=== PATIENT | male | born 1995 | race Caucasian/White ===

== ENCOUNTER 2017-05-22 00:15 | Emergency (ER) | payer OTHER ==
[2017-05-22 00:25] VITALS: BP 139/85
--- NOTE | 2017-05-22 00:35 | ER Document Report ---
HPI - HPI Pain Level: 5 Context: Patient is a 22-year-old male presents emergency department complaining of right ear pain. Patient states that he has had some sinus congestion over the past couple of days earlier today he blew his nose really hard trying to pop his ears when he had sudden onset of loss of hearing in the right ear then has developed a sharp stabbing pain in that ear over the course of today. Patient states that he is trying to go to bed this evening and the pain is just unbearable. He denies any fevers, chills, bleeding or drainage from that ear. - DERM Skin Color: Normal, [place] Past Medical History - Social History Smoking Status: Never Smoker Family History: Reviewed & Not Pertinent Patient has suicidal ideation: No Patient has homicidal ideation: No Renal/ Medical History: Denies: Hx Peritoneal Dialysis - Immunizations Hx Diphtheria, Pertussis, Tetanus Vaccination: Yes Vertical Provider Document - CONSTITUTIONAL Agree With Documented VS: Yes Notes: PHYSICAL EXAM GENERAL: Alert, interacts well. HEENT: NCAT, pale conjunctiva, extraocular movements intact, pupils PERRL. external ear evidence of bright red blood, no evidence of external auditory canal tenderness, blood/drainage, cerumen impaction, TM with evidence of pinpoint perforation at 1:00 with minimal bleeding without evidence of effusion , bulging, injection, MMM NECK: Full range of motion. Supple. Trachea midline. LUNGS: Clear to auscultation bilaterally, no wheezes, rales, or rhonchi. No respiratory distress. HEART: Regular rate and rhythm. No murmurs, gallops, or rubs. NEUROLOGICAL: Alert and oriented x4. Normal speech. PSYCH: Normal affect, normal mood. SKIN: Warm, dry, normal turgor. No rashes or lesions noted. - INFECTION CONTROL TRAVEL OUTSIDE OF THE [place] IN LAST 30 DAYS: No - RESPIRATORY O2 Sat by Pulse Oximetry: 99 Course - Re-evaluation Re-evalutation: 05/22/17 01:00 patient is a 22-year-old male is hemodynamically stable, no acute distress afebrile. Presentation is consistent with barotrauma TM perforation. Discharge home on antibiotics and minimal pain medication [place] reevaluation and if necessary ENT referral - Vital Signs Vital signs: Temp Pulse Resp BP Pulse Ox 97.6 F 66 16 139/85 H 99 11/13/17 00:21 05/22/17 00:21 05/22/17 00:21 05/22/17 00:21 05/22/17 00:21 Discharge - Discharge Clinical Impression: Perforated tympanic membrane Qualifiers: Laterality: right Qualified Code(s): H72.91 - Unspecified perforation of tympanic membrane, right ear Condition: Good Disposition: HOME, SELF-CARE Instructions: Use of Ear Drops ([facility]), Perforated Eardrum ([facility]) Additional Instructions: Please follow [place] Prescriptions: Ofloxacin 5 ml OT ONCE 14 Days drops
[2017-05-22] MEDS ORDERED: HYDROCODONE/ACETAMINOPHEN 5-325 MG 6 TAB/DSPK PO PRN (00:45)
[2017-05-22] MEDS ORDERED: KETOROLAC TROMETHAMINE INJ/PF 30 MG/1 ML SDV IM ONE (00:56)
== END 2017-05-22 01:13 | disposition home or self-care (01) ==
LOC: ER 00:15
DX: H72.91 Unspecified perforation of tympanic membrane, right ear (principal); H92.01 Otalgia, right ear; R09.81 Nasal congestion
CPT/HCPCS: 99282; 96372; J1885

== ENCOUNTER 2018-02-16 10:04 | Day surgery (SDC) | payer OTHER ==
[~2018-02-16 10:04] MED LIST: BUPIVACAINE HCL 0.5 % INJ/PF 30 ML SDV ONE; LIDOCAINE 1% INJ-PF (10 MG/ML) 30 ML SDV ONE
[2018-02-16 11:04] LABS: ABSOLUTE EOSINOPHILS # (AUTO) 0.1 10^3/uL (0.0-0.6); ABSOLUTE LYMPHOCYTES (AUTO) 1.8 10^3/uL (0.5-4.7); ABSOLUTE MONOCYTES (AUTO) 0.4 10^3/uL (0.1-1.4); ABSOLUTE NEUT (AUTO) 4.1 10^3/uL (1.7-8.2); BASOPHILS % (AUTO) 0.7 % (0-2); EOSINOPHILS % (AUTO) 1.2 % (0-6); HEMATOCRIT 42.9 % (37.9-51.0); HEMOGLOBIN 14.7 g/dL (13.5-17.0); LYMPHOCYTES % (AUTO) 27.8 % (13-45); MEAN CORPUSCULAR HEMOGLOBIN 30.9 pg (27.0-33.4); MEAN CORPUSCULAR HGB CONC 34.3 g/dL (32.0-36.0); MEAN CORPUSCULAR VOLUME 90 fl (80-97); MONOCYTES % (AUTO) 6.5 % (3-13); PLATELET COUNT 171 10^3/uL (150-450); RED BLOOD COUNT 4.76 10^6/uL (4.35-5.55); RED CELL DISTRIBUTION WIDTH 13.8 % (11.5-14.0); SEGMENTED NEUTROPHILS % (AUTO) 63.8 % (42-78); TOTAL CELLS COUNTED % (AUTO) 100 %; WHITE BLOOD COUNT 6.4 10^3/uL (4.0-10.5)
[2018-02-16 11:43] LABS: ERYTHROCYTE SEDIMENTATION RATE 4 mm/hr (0-15)
[2018-02-16] MEDS ORDERED: HYDROMORPHONE HCL INJ/PF 2 MG/ML AMPULE ONE (12:12)
[2018-02-16] MEDS ORDERED: ONDANSETRON HCL INJ/PF 4 MG/2 ML SDV ONE (12:12)
[2018-02-16] MEDS ORDERED: PROPOFOL INJ 200 MG/20 ML VIAL IV ONE (12:12)
[2018-02-16] MEDS ORDERED: MIDAZOLAM 2 MG/2 ML INJ ONE (12:12)
[2018-02-16] MEDS ORDERED: FENTANYL CITRATE INJ/PF 100 MCG/2 ML AMPUL ONE (12:13)
[2018-02-16] MEDS ORDERED: AMPICILLIN SODIUM/SULBACTAM NA 3 GM in NORMAL SALINE 100 ML IV ONE (13:00)
[2018-02-16] MEDS: FENTANYL CITRATE INJ/PF 100 MCG/2 ML AMPUL ONE ×2 (13:15→13:30)
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
[2018-02-16] MEDS ORDERED: OXYCODONE-ACETAMINOPHEN 5-325 MG TABLET PO PRN ×2 (13:35)
[2018-02-16] MEDS ORDERED: DIPHENHYDRAMINE HCL 50 MG/ML VIAL IV PRN (13:35)
[2018-02-16] MEDS ORDERED: PROMETHAZINE HCL INJ 25 MG/1 ML VIAL IV PRN ×2 (13:35)
[2018-02-16] MEDS ORDERED: MEPERIDINE HCL/PF INJ 25 MG/1 ML DISP.SYRIN IV PRN (13:35)
[2018-02-16] MEDS ORDERED: FENTANYL CITRATE INJ/PF 100 MCG/2 ML AMPUL IV PRN ×3 (13:35)
[2018-02-16] MEDS ORDERED: MORPHINE SULFATE 10 MG/ML INJ IV PRN (13:35)
--- NOTE | 2018-02-16 13:55 | RADIOLOGY REPORT (SQ) ---
EXAM DESCRIPTION: NO CHG FLUORO; FINGER LEFT COMPLETED DATE/TIME: 02/16/2018 1:21 pm REASON FOR STUDY: BONE BX LEFT FINGER/THUMB ASST WITH FLUORO IN OR COMPARISON: None. FLUOROSCOPY TIME: 8 seconds 2 Images saved to PACS LIMITATIONS: None. PROCEDURE: Bone biopsy FINDINGS: Images from fluoro document the procedure. IMPRESSION: Bone biopsy. Refer to operative note for further information. COMMENT: PQRS 6045F: Fluoroscopy time of the procedure is documented in the report. TECHNICAL DOCUMENTATION: JOB ID: [id number] [employer]- All Rights Reserved Reading location - IP/workstation name: [email or web address]
--- NOTE | 2018-02-16 13:55 | RADIOLOGY REPORT (SQ) ---
EXAM DESCRIPTION: NO CHG FLUORO; FINGER LEFT COMPLETED DATE/TIME: 02/16/2018 1:21 pm REASON FOR STUDY: BONE BX LEFT FINGER/THUMB ASST WITH FLUORO IN OR COMPARISON: None. FLUOROSCOPY TIME: 8 seconds 2 Images saved to PACS LIMITATIONS: None. PROCEDURE: Bone biopsy FINDINGS: Images from fluoro document the procedure. IMPRESSION: Bone biopsy. Refer to operative note for further information. COMMENT: PQRS 6045F: Fluoroscopy time of the procedure is documented in the report. TECHNICAL DOCUMENTATION: JOB ID: [id number] [employer]- All Rights Reserved Reading location - IP/workstation name: [email or web address]
[2018-02-16] MEDS: OXYCODONE-ACETAMINOPHEN 5-325 MG TABLET PO PRN (15:20)
--- NOTE | 2018-02-16 16:41 | RADIOLOGY REPORT (SQ) ---
EXAM DESCRIPTION: PICC INSERTION; FLUORO/CV PLACEMENT; U/S GUIDE FOR VASCULAR ACCESS COMPLETED DATE/TIME: 02/16/2018 4:32 pm REASON FOR STUDY: IV antibiotics; IV ANTIBIOTICS M86.649 OTHER CHRONIC OSTEOMYELITIS, UNSPECIFIED H AND COMPARISON: None. FLUOROSCOPY TIME: 0.22 minutes. 1 images saved to PACS. TECHNIQUE: Fluoroscopic and ultrasound guided PICC placement. LIMITATIONS: None. PROCEDURE: After written consent and assessment were obtained, the patient was brought into the fluo roscopy room and place supine on the table. Ultrasound evaluation of potential access sites were perf ormed. After successfully identifying a patent right basilic vein, the right arm was prepped and drap ed in a sterile fashion along with the ultrasound probe. The entry site was anesthetized with 1% lido ara. A 21 gauge 7 cm needle was advanced through the skin and into the basilic vein under live ultr asound guidance. An ultrasound image was saved to PACS confirming access site. A .018 guide wire wa s then inserted through the needle and into the venous system. The needle was the removed and an 11 b lade scalpel was used to make a 1cm skin incision. A 5 fr peel-away sheath was advanced over the wir e and into the venous system. A measurement was then made using the existing wire and live fluoroscop ic guidance. The wire was then removed and the trimmed. The PICC was advanced through the peel-away s trevor and into the venous system. The peel-away sheath was removed and the catheter was adhered to th e patients arm with a stat lock. The catheter was then aspirated and flushed and a sterile bandage wa s placed over the access site. A fluoroscopic spot image was saved to PACS confirming the catheter t ip within the superior vena cava. IMPRESSION: SUCCESSFUL PLACEMENT OF A 5 FR DUAL LUMEN 38 CM PICC IN THE RIGHT BASILIC VEIN. COMMENT: Patient medication list reviewed: Yes- Quality ID# 130:Eligible professional attests to doc umenting in the medical record they obtained, updated, or reviewed the patient's current medications. . Quality ID 145: Final reports for procedures using fluoroscopy that document radiation exposure jesús eligio, or exposure time and number of fluorographic images (if radiation exposure indices are not avail able) Quality ID #76: The patient was prepped and draped using maximum sterile barrier technique including cap, mask, sterile gown, sterile gloves, a large sterile sheet, hand hygiene, and 2% Chlorhexidine fo r cutaneous antisepsis. When ultrasound is used, sterile ultrasound techniques are followed requiring sterile gel and sterile probes. TECHNICAL DOCUMENTATION: JOB ID: [id number] [employer]- All Rights Reserved rev-11/24 Reading location - IP/workstation name: [email or web address] [id number]
[2018-02-16] MEDS ORDERED: AMPICILLIN SODIUM/SULBACTAM NA 3 GM in NORMAL SALINE 100 ML IV SCH (18:00)
[2018-02-16] MEDS ORDERED: AMPICILLIN SOD/SULBACTAM 3 GM VIAL IV SCH (18:00)
[2018-02-16] MEDS: AMPICILLIN SODIUM/SULBACTAM NA 3 GM in NORMAL SALINE 100 ML IV SCH ×2 (18:44→23:17)
[2018-02-16] MEDS: MORPHINE SULFATE 10 MG/ML INJ IV PRN (20:20)
[2018-02-17] MEDS ORDERED: NORMAL SALINE 10 ML SDV (AFTER EACH USE) IV PRN (04:07)
[2018-02-17] MEDS: OXYCODONE-ACETAMINOPHEN 5-325 MG TABLET PO PRN ×2 (04:37→15:04)
[2018-02-17 04:56] LABS: ABSOLUTE EOSINOPHILS # (AUTO) 0.1 10^3/uL (0.0-0.6); ABSOLUTE LYMPHOCYTES (AUTO) 2.2 10^3/uL (0.5-4.7); ABSOLUTE MONOCYTES (AUTO) 0.5 10^3/uL (0.1-1.4); ABSOLUTE NEUT (AUTO) 5.6 10^3/uL (1.7-8.2); BASOPHILS % (AUTO) 0.3 % (0-2); EOSINOPHILS % (AUTO) 1.5 % (0-6); HEMATOCRIT 41.2 % (37.9-51.0); LYMPHOCYTES % (AUTO) 26.1 % (13-45); MEAN CORPUSCULAR HEMOGLOBIN 30.7 pg (27.0-33.4); MEAN CORPUSCULAR HGB CONC 33.9 g/dL (32.0-36.0); MEAN CORPUSCULAR VOLUME 90 fl (80-97); MONOCYTES % (AUTO) 6.3 % (3-13); PLATELET COUNT 154 10^3/uL (150-450); RED BLOOD COUNT 4.56 10^6/uL (4.35-5.55); RED CELL DISTRIBUTION WIDTH 13.7 % (11.5-14.0); SEGMENTED NEUTROPHILS % (AUTO) 65.8 % (42-78); TOTAL CELLS COUNTED % (AUTO) 100 %; WHITE BLOOD COUNT 8.5 10^3/uL (4.0-10.5)
[2018-02-17] MEDS: AMPICILLIN SODIUM/SULBACTAM NA 3 GM in NORMAL SALINE 100 ML IV SCH (06:09)
[2018-02-17] MEDS ORDERED: NORMAL SALINE 10 ML SDV (SCHEDULED) IV SCH (10:00)
[2018-02-17] MEDS: MORPHINE SULFATE 10 MG/ML INJ IV PRN (10:33)
--- NOTE | 2018-02-17 10:55 | PDOC PROGRESS REPORT ---
Subjective Progress Note for:: 02/17/18 Subjective:: Patient lying in bed complete. States he has some soreness but overall his pain is controlled. Denies numbness or tingling. Denies fever chills or sweats. Reason For Visit: OSTEOMYELITIS RIGHT HAND Physical Exam Vital Signs: Temp Pulse Resp BP Pulse Ox 98.4 F 70 14 113/67 98 02/17/18 00:04 02/17/18 00:04 02/17/18 00:04 02/17/18 00:04 02/17/18 00:04 Intake & Output 02/16/18 02/17/18 02/18/18 06:59 06:59 06:59 Intake Total 1100 100 Output Total 200 Balance 900 100 Weight 90.72 kg 91.1 kg Musculoskeletal exam: PRESENT: other - Left hand: Dressing clean/dry/intact no erythema or drainage. Cap refill less than 2 seconds. No sensory deficits. Intact MP/IP joint flexion/extension. Results Laboratory Results: 02/17/18 04:30 02/16/18 02/16/18 02/17/18 10:50 10:50 04:30 WBC 6.4 8.5 RBC 4.76 4.56 Hgb 14.7 14.0 Hct 42.9 41.2 MCV 90 90 MCH 30.9 30.7 MCHC 34.3 33.9 RDW 13.8 13.7 Plt Count 171 154 Seg Neutrophils % 63.8 65.8 Lymphocytes % 27.8 26.1 Monocytes % 6.5 6.3 Eosinophils % 1.2 1.5 Basophils % 0.7 0.3 Absolute Neutrophils 4.1 5.6 Absolute Lymphocytes 1.8 2.2 Absolute Monocytes 0.4 0.5 Absolute Eosinophils 0.1 0.1 Absolute Basophils 0.0 0.0 C-Reactive Protein < 5.0 Impressions: Finger X-Ray 02/16/18 00:00 IMPRESSION: Bone biopsy. Refer to operative note for further information. Fluoroscopy 02/16/18 00:00 IMPRESSION: Bone biopsy. Refer to operative note for further information. Guidance Fluoroscopy 02/16/18 00:00 IMPRESSION: SUCCESSFUL PLACEMENT OF A 5 FR DUAL LUMEN 38 CM PICC IN THE RIGHT BASILIC VEIN. Interventional Vascular Procedure 02/16/18 00:00 IMPRESSION: SUCCESSFUL PLACEMENT OF A 5 FR DUAL LUMEN 38 CM PICC IN THE RIGHT BASILIC VEIN. PICC Line Insertion 02/16/18 00:00 IMPRESSION: SUCCESSFUL PLACEMENT OF A 5 FR DUAL LUMEN 38 CM PICC IN THE RIGHT BASILIC VEIN. Assessment & Plan - Diagnosis (1) Osteomyelitis of left hand Qualifiers: Osteomyelitis type: chronic, with draining sinus Qualified Code(s): M86.442 - Chronic osteomyelitis with draining sinus, left hand Is this a current diagnosis for this admission?: Yes Plan: Postop day #1 status post irrigation debridement with culture and biopsy left thumb CMC joint, first metacarpal Current plan is for patient to receive 4 weeks of IV antibiotics if cultures remain negative which is certainly a plausible possibility would recommend daily Rocephin. May adjust antibiotics as per culture results. If patient is able to be set up for home iv antibiotics today would anticipate possible discharge.
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
[2018-02-17] MEDS ORDERED: CEFTRIAXONE SODIUM 1,000 MG in NORMAL SALINE 50 ML IV ONE (16:00)
[2018-02-17 16:18] VITALS: BP 122/81
[2018-02-18] MEDS ORDERED: CEFTRIAXONE 2 GM/D5W RTU 2 GM/50 ML RTUPB IV SCH (10:00)
--- NOTE | 2018-02-20 07:33 | Progress Note ---
Provider Note Provider Note: ID Consult Note Reviewed chart and discussed patient briefly via telephone with Dr Grimm on . Pt had dog bit to L hand in September 2017 and given prophylactic antibiotics but later developed redness, swelling and pain along the same area and again received antibiotics. He was reported to have imaging findings compatible with osteomyelitis of the metacarpal base and septic arthritis of the CMC joint and underwent excisional debridement. Bone biopsy was taken intraoperatively. Anaerobic/aerobic cultures and Gram stain have been negative. PICC line was placed. In terms of antibiotic selection, IV Unasyn would be appropriate for covering the dylan that is normally associated with a dog bite that is likely involved but may be difficult from outpatient administration standpoint. IV ertapenem 1 g daily is an alternative, as would be 2 g IV Rocephin daily in terms of provideding fairly broad spectrum activity. Beto Oreilly MD [facility] Infectious Diseases pager [phone]
== END 2018-02-17 16:53 | disposition home health service (06) ==
LOC: OROUT 10:04 → 4S 15:10 → OROUT 02-17 16:53
PROVIDERS: ATTEND Orthopaedic Surgery
DX: M86.442 Chronic osteomyelitis with draining sinus, left hand (principal); M79.645 Pain in left finger(s)
CPT/HCPCS: 36415; 87070; 87205; 85025; 87075; 87101; 85652; 86140; 88305 ×2; 88311; 73140; 36569; 77001; 76937; 11044; J2250; J3490 ×2; J3010; J0295 ×2; J2270 ×2; J1170; J0696; J2405; J2704; J1642 ×2; 01830